=== PATIENT | male | born 2000 | race Caucasian/White ===

== ENCOUNTER 2019-05-06 00:34 | Emergency (ER) | payer SELFPAY ==
[~2019-05-06] VITALS: Ht 170.2 cm; Wt 72.6 kg
[2019-05-06 02:33] VITALS: BP 117/68
== END 2019-05-06 04:27 | disposition home or self-care (01) ==
LOC: ER 00:39
DX: S00.03XA Contusion of scalp, initial encounter (principal); S20.219A Contusion of unspecified front wall of thorax, initial encounter; S80.02XA Contusion of left knee, initial encounter; Z88.1 Allergy status to other antibiotic agents; Y08.89XA Assault by other specified means, initial encounter; Y93.89 Activity, other specified; Y99.8 Other external cause status; Y92.89 Other specified places as the place of occurrence of the external cause
CPT/HCPCS: 70450; 71111; 73562